=== PATIENT | female | born 1935 | race Caucasian/White ===

== ENCOUNTER 2017-08-18 12:40 | Emergency (ER) | payer MEDICARE ==
[2017-08-18 12:59] VITALS: BP 163/76
--- NOTE | 2017-08-18 14:35 | UC ---
Laceration HPI - HPI Summary HPI Summary: Pt presents with laceration to right thumb. Pt was opening a box with a double- sided razor blade. It slipped and she sustained a 1cm linear superficial lac to the pad of her right thumb. She believes her last tetanus was within the last 5 years. She applied pressure to the area and wrapped it in a telfa dressing and came to . - History Of Current Complaint Chief Complaint: UCLaceration Stated Complaint: CUT ON THUMB Time Seen by Provider: 08/18/17 13:59 Hx Obtained From: Patient Laceration Location: Finger Mechanism Of Injury: Sharp Trauma Onset/Duration: Sudden Onset Severity: Mild - Allergies/Home Medications Allergies/Adverse Reactions: Allergies Allergy/AdvReac Type Severity Reaction Status Date / Time CATS, HORSES Allergy Congestion Uncoded 08/18/17 12:59 PMH/Surg Hx/FS Hx/Imm Hx Previously Healthy: Yes Neurological History: Dementia - Surgical History Surgical History: Yes Surgery Procedure, Year, and Place: RT HIP REPLACEMENT left hip replacement 2013. BILATERAL SHOULDER RESURFACED. [facility] - Family History Known Family History: Positive: Hypertension - Social History Alcohol Use: Daily Alcohol Amount: 1 GLASS WINE DAILY Substance Use Type: None Smoking Status (MU): Never Smoked Tobacco - Immunization History Most Recent Influenza Vaccination: thinks so Most Recent Tetanus Shot: UP TO DATE, she thinks Most Recent Pneumonia Vaccination: PT. THINKS SHE MAY HAVE RECEIVED IN THE PAST- UNSURE Review of Systems Constitutional: Negative Skin: Other - Laceration right thumb Respiratory: Negative Cardiovascular: Negative All Other Systems Reviewed And Are Negative: Yes Physical Exam Triage Information Reviewed: Yes Appearance: Well-Appearing, Well-Nourished Vital Signs: Initial Vital Signs Temp 98.2 F 08/18/17 12:55 Pulse 74 08/18/17 12:55 Resp 18 08/18/17 12:55 BP 163/76 08/18/17 12:55 Pulse Ox 100 08/18/17 12:55 Vital Signs Reviewed: Yes Musculoskeletal: Positive: Strength Intact - Right hand/1st digit, ROM Intact - Right hand/1st digit, No Edema Neurological: Positive: Alert, Other: - Sensations intact Right hand/1st digit Psychological: Positive: Age Appropriate Behavior Skin: Positive: Other - 1cm linear superficial laceration to pad of right thumb. No tendon involvement. Laceration Repair - Laceration Repair 1 Description: Linear Laceration Size After Repair: Length (cm) - 1 Modified For Repair: No Irrigation With Pressure Irrigation Device: Yes Closure Material: Skin Adhesive Laceration Course/Dx - Course/Dx Course Of Treatment: Area was irrigated with sterile saline. This appears to be a very superficial slice injury with skin flap present. The patient had already applied pressure and a bandage - flap is in the correct position and appears to be clotting already. It was determined that sutures were unnecessary and would likely results in more harm than benefit. The area was cleansed, skin adhesive glue was used to approximate the <1mm skin flap, and telfa dressing was applied. Keep bandage on and area clean and dry for the rest of the day. - Differential Dx - Laceration/Wound Differental Diagnoses: Abrasion, Laceration Provider Diagnoses: Finger laceration - skin adhesive Discharge - Discharge Plan Condition: Stable Disposition: HOME Patient Education Materials: Laceration (ED) Referrals: Constantino Vazquez MD [Primary Care Provider] - Additional Instructions: 1) Keep bandage on the area for the rest of today 2) Watch for signs of infection such as colored drainage, warmth, red streaking , fevers, or chills - if you develop any of these symptoms please call or return to . If you develop a fever, SOB, chest pain, new or worsening symptoms - please call your PCP or go to the ED. Your blood pressure was high at todays visit. Please see your primary provider within 4 weeks for recheck and re-evaluation.
== END 2017-08-18 14:45 | disposition home or self-care (01) ==
LOC: UCEAST 12:40
DX: S61.011A Laceration without foreign body of right thumb without damage to nail, initial encounter (principal); W26.0XXA Contact with knife, initial encounter; Y93.9 Activity, unspecified; Y92.9 Unspecified place or not applicable; Y99.9 Unspecified external cause status; Z72.89 Other problems related to lifestyle
CPT/HCPCS: 12001; 99211; G0463

== ENCOUNTER 2018-03-09 08:34 | Emergency (ER) | payer MEDICARE ==
[2018-03-09 08:59] VITALS: BP 144/71
--- NOTE | 2018-03-09 10:00 | RAD ---
INDICATION: Cough COMPARISON: Most recent comparison chest x-rays dated December 25, 2013 TECHNIQUE: PA and lateral views of the chest were obtained. FINDINGS: The heart and mediastinum are normal in size and contour. There is coarse calcification overlying the arch of the aorta. The lungs are grossly clear. There is no evidence of large pleural effusion. Visualized bones are normal for the patient's age. There is no radiographic evidence of free air beneath the diaphragm IMPRESSION: No radiographic evidence of acute cardiopulmonary disease.
--- NOTE | 2018-03-09 10:34 | UC ---
Mat Poole Stephanie, [facility] on 03/09/18 at 0927 . Respiratory Complaint HPI - HPI Summary HPI Summary: In Room Note: The pt is an 82 y/o F presenting to with c/o cough that began on 03/07/18. Symptoms include chest congestion, nasal discharge and post-nasal drip. She denies CP and SOB, fever, N/V/D. She denies sick contacts. The pt reports hx of seasonal allergies. The pt denies recent hospitalizations. MD Note: Visit hx non-contributory to present complaint, previous dx of HTN. Afebrile. Pulse ox 99. Nurse Note: c/o coughing for the past 2 days along with post nasal dripping and runny nose. Denies fever. - History of Current Complaint Chief Complaint: UCRespiratory Stated Complaint: COUGH Time Seen by Provider: 03/09/18 09:27 Hx Obtained From: Patient, Family/Engineering Recruiter - ?: No Onset/Duration: Gradual Onset, Lasting Days - 2, Still Present Severity Currently: Mild Pain Intensity: 0 Pain Scale Used: 0-10 Numeric Character: Cough: Nonproductive Aggravating Factors: Nothing Alleviating Factors: Nothing Associated Signs And Symptoms: Negative: Fever - Allergies/Home Medications Allergies/Adverse Reactions: Allergies Allergy/AdvReac Type Severity Reaction Status Date / Time CATS, HORSES Allergy Congestion Uncoded 03/09/18 08:59 PMH/Surg Hx/FS Hx/Imm Hx Previously Healthy: Yes - She denies past medical hx. Other Cardiovascular History: Denies heart murmur - Surgical History Surgical History: Yes Surgery Procedure, Year, and Place: RT HIP REPLACEMENT left hip replacement 2013. BILATERAL SHOULDER RESURFACED. [facility] - Family History Known Family History: Positive: Hypertension - Social History Occupation: Retired Lives: With Family Alcohol Use: Daily Alcohol Amount: 1 GLASS WINE DAILY Substance Use Type: None Smoking Status (MU): Never Smoked Tobacco Have You Smoked in the Last Year: No - Immunization History Most Recent Influenza Vaccination: thinks so Most Recent Tetanus Shot: UP TO DATE, she thinks Most Recent Pneumonia Vaccination: PT. THINKS SHE MAY HAVE RECEIVED IN THE PAST- UNSURE Review of Systems Constitutional: Negative Skin: Negative Eyes: Negative ENT: Nasal Discharge, Other - post-nasal drip Respiratory: Cough Cardiovascular: Other - chest congestion Gastrointestinal: Negative Genitourinary: Negative Motor: Negative Neurovascular: Negative Musculoskeletal: Negative Neurological: Negative Psychological: Negative All Other Systems Reviewed And Are Negative: Yes Physical Exam - Summary Physical Exam Summary: Appearance: The patient is well-appearing, is in no pain distress, and is well- nourished. Eyes: Conjunctiva are clear. ENT: The hearing is grossly normal, the pharynx is normal, and the TMs are normal. There is no muffled or hoarse voice. Neck: The neck is supple and there is no lymphadenopathy. Respiratory: The chest is nontender. THE LUNGS ARE CLEAR, there are normal breath sounds, and there is no respiratory distress. NO WHEEZES, RHONCHI OR RALES. Cardiovascular: Heart is regular rate and rhythm. There is no murmur. Abdomen: The abdomen is soft and nontender. There is no organomegaly. Bowel sounds: present Musculoskeletal: Strength is intact. The patient moves all extremities. Neurological: The patient is alert. Psychological: The patient displays age appropriate behavior Skin: Negative for rashes. Triage Information Reviewed: Yes Vital Signs: Initial Vital Signs Temp 98.1 F 03/09/18 08:53 Pulse 84 03/09/18 08:53 Resp 16 03/09/18 08:53 BP 144/71 03/09/18 08:53 Pulse Ox 99 03/09/18 08:53 Vital Signs Reviewed: Yes Diagnostic Evaluation - Laboratory O2 Sat by Pulse Oximetry: 99 - Radiology Xray Interpretation: No Acute Changes Radiology Interpretation Completed By: Radiologist - No radiographic evidence of acute cardiopulmonary disease. physician has reviewed this report. Respiratory Course/Dx - Course Course Of Treatment: Hypertensive BP reading of 144/71; follow up with PCP within four weeks to check blood pressure. Medications have been included in the original chart and reviewed. Patient is an 82-year-old with memory problems , who reports a cough but no temperature. Chest x-ray was negative for pneumonia. My diagnosis is URI. I spoke to the patient and her at length about symptomatic treatment. They will follow up for any increasing temperature chest pain or shortness of breath. - Differential Dx/Diagnosis Differential Diagnosis/HQI/PQRI: Bronchitis, Lower Resp Infection, Sinusitis Provider Diagnoses: upper respiratory infection Discharge - Sign-Out/Discharge Documenting (check all that apply): Discharge/Admit/Transfer - Discharge Plan Condition: Stable Disposition: HOME Patient Education Materials: Guaifenesin (By mouth), Upper Respiratory Infection (ED), Cold Symptoms (ED) Referrals: Constantino Vazquez MD [Primary Care Provider] - Additional Instructions: Your blood pressure reading today was 144/71, indicating HYPERTENSION. Follow- up with your primary care provider within 4 weeks for blood pressure readings and further evaluation. PLEASE SEEK CARE AT THE EMERGENCY DEPARTMENT IF SYMPTOMS WORSEN OR IF NEW SYMPTOMS DEVELOP. As we discussed, your symptoms are most consistent with an upper respiratory infection or cold. This is usually viral. Your x-ray did not show any pneumonia. As long as you don't have chest pain shortness of breath, temperature difficulty breathing or swallowing, this should get better over the next 7-10 days. Blow or a number of instructions that can help make him more comfortable. Feel free to call at any time with any questions or concerns. COUGH, CONGESTION of CHEST, SINUSES OR EARS: The most important goal is to liquefy all the phlegm and get it out of your head and chest. Any illness causing cough, congestion, sore throat or sinus discomfort can be helped by doing the following: STAND UNDER SHOWER STREAM TO LOOSEN SECRETIONS. STAY AWAY FROM ANY SMOKE OR IRRITANTS. WHAT ELSE CAN HELP RELIEVE YOUR SYMPTOMS: GENERAL TYPES OF MEDICINE THAT MAY HELP DECONGESTANTS: helps relieve stuffiness and clears sinuses. Pseudoephedrine ( Sudafed or generic) is effective but you need to ask the pharmacist for it because it may be kept behind the counter. ANTIHISTAMINES: are NOT helpful in many colds and flus because they can worsen sore throat, dry eyes and mouth and cause drowsiness. Examples are diphenhydramine, doxylamine and chlorpheniramine. They can help dry you out if you are having profuse, clear drainage from the nose. EXPECTORANTS: helps thin mucous in the nose and chest, making it easier to clear the fluid out. Expectorants are in most combination cough/cold remedies and should be taken with plenty of water. Guaifenesin is the most common expectorant and it comes in pill or liquid form. Mucinex is an extended release form of guaifenesin. COUGH SUPPRESANT: reduces the body's cough reflex. Dextromethorphan is in over the counter products. Rarely, narcotics such as codeine or hydrocodone are used to suppress cough. SPECIFIC MEDICATIONS: Some of these may come in combination. In general, they all contain the same or similar active ingredients. The most important goal is to liquefy all the phlegm and get it out of your head and chest: The following medicines (you can buy them without prescription) may help: To help with cough: DEXTROMETHORPHAN (Vicks, Robitussin, Nyquil and other brands) To help break up phlegm: GUAIFENESIN (Mucinex, Robitussin, other brands) To help clear congestion: PSEUDOEPHEDRINE (Sudafed, Dimetapp, other brands) TRY TO CLEAR NOSE: AFRIN NASAL SPRAY: 2-3 SPRAYS PER NOSTRIL, TWICE A DAY FOR TWO DAYS ONLY. USEFUL WAYS TO FEEL BETTER WITHOUT MEDICATIONS: STAND UNDER SHOWER STREAM TO LOOSEN SECRETIONS. USE A VAPORIZOR. STAY AWAY FROM ANY SMOKE OR IRRITANTS. USE SALINE NASAL SPRAY TO KEEP FLOW OF MUCOUS FROM NOSTRILS AND SINUSES. CONSIDER USING NETI POT TO HELP WITH ALLERGIES AND CONGESTION IN THE NOSE. USE THIS THREE TIMES A WEEK. YOU CAN GET THIS AT [facility] IN [place] OR VARIOUS DRUGSTORES. DRINK LOTS OF WARM FLUIDS USEFUL HOME REMEDIES: WARM WATER GARGLES, WITH TSP OF SALT PER 8 OUNCES OF WATER, GARGLE FOR A FEW SECONDS AND SPIT OUT; GARGLE AND SPIT OUT; EVERY THREE HOURS. AND/OR: WARM WATER OR TEA, HONEY AND LEMON; 2-3 CUPS A DAY. FOR SORE THROAT: KEEP THROAT MOIST WITH LOZENGES; TEA AND HONEY. USE WARM WATER GARGLES 3-4 TIMES A DAY. FOLLOW UP: RE-CHECK IN 1O DAYS, NEEDED, IF YOU ARE NOT IMPROVING. RETURN HERE OR SEE YOUR PHYSICIAN. RE-CHECK SOONER IF INCREASED PAIN OR TEMPERATURE. - Billing Disposition and Condition Condition: STABLE Disposition: Home The documentation as recorded by the Mat gasca Stephanie accurately reflects the service I personally performed and the decisions made by me, Ion Bagley MD.
== END 2018-03-09 10:34 | disposition home or self-care (01) ==
LOC: UCEAST 08:34
DX: J06.9 Acute upper respiratory infection, unspecified (principal); Z96.643 Presence of artificial hip joint, bilateral
CPT/HCPCS: 71046; 99211; G0463